=== PATIENT | male | born 2000 | race Caucasian/White ===

== ENCOUNTER 2020-09-10 18:47 | Emergency (ER) | payer BC ==
[~2020-09-10] VITALS: Ht 175.3 cm; Wt 75.6 kg
[2020-09-10 19:02] VITALS: BP 145/92
[2020-09-10] MEDS: MORPHINE SULFATE 4 MG/ML DISP.SYRIN. IM ONE (19:19)
--- NOTE | 2020-09-10 19:20 | PHYS DOC ---
Past History Past Medical History: No Pertinent History Past Surgical History: No Surgical History Alcohol Use: Occasionally Adult General Chief Complaint Chief Complaint: ABDOMINAL PAIN HPI HPI Patient is a 20-year-old male who presents with pain at and around his umbilicus, 5 out of 10, dull and achy in nature that started 4 days ago. States that on Tuesday he went to the gym and exercise and later that evening noticed this discomfort around his bellybutton. States it has been there, with intermittent pain over the last 4 days. States he went to an urgent care today and was sent to the emergency department. Denies any fevers, chest pain, shortness of breath, other abdominal pain, nausea, vomiting, dysuria, hematuria, diarrhea or blood in the stool. States he is eating and drinking normally. States he is making urine and stool normally for him. Review of Systems Review of Systems Review of systems otherwise unremarkable except noted in HPI Allergies Allergies Allergies Coded Allergies Type Severity Reaction Last Updated Verified No Known Drug Allergies 09/10/20 No Physical Exam Physical Exam Constitutional: Well developed, well nourished, no acute distress, non-toxic appearance. [] HENT: Normocephalic, atraumatic, Eyes: conjunctiva normal, no discharge. [] Cardiovascular:Heart rate regular rhythm, no murmur [] Lungs & Thorax: Bilateral breath sounds clear to auscultation [] Abdomen: Bowel sounds normal, soft, and approximately 1 cm, circular, soft, mobile mildly tender mass just to the right of patient's umbilicus suspicious for hernia. Skin: Warm, dry, no erythema, no rash. [] Back: No tenderness, no CVA tenderness. [] Neurologic: Alert and oriented X 3, no focal deficits noted. [] Psychologic: Affect normal, judgement normal, mood normal. [] Current Patient Data Vital Signs Vital Signs Date Time Temp Pulse Resp B/P (MAP) Pulse Ox O2 Delivery O2 Flow Rate FiO2 09/10/20 19:02 98.1 56 16 145/92 (109) 98 Room Air EKG EKG [] Radiology/Procedures Radiology/Procedures [] Heart Score C/O Chest Pain: No Risk Factors: Risk Factors: DM, Current or recent (<one month) smoker, HTN, HLP, family history of CAD, obesity. Risk Scores: Risk Factors: DM, Current or recent (<one month) smoker, HTN, HLP, family hist ory of CAD, obesity. Course & Med Decision Making Course & Med Decision Making Patient is a 20-year-old male who presents with abdominal pain Vital signs not concerning. Physical exam noted above. Patient placed in Trendelenburg, given morphine and small umbilical hernia reduced. Observed in the emergency department after reduction with no further herniation. Discussed hernias with patient and given education. Vies none management at home with hernia belt, diet and pain management. Advised to call primary care physician in the morning to update on ED visit and discuss need for outpatient surgical repair. Gave strict return precautions to the ED. Patient grateful, verbalized understanding and agreed with plan of discharge. [] Dragon Disclaimer Dragon Disclaimer This electronic medical record was generated, in whole or in part, using a voice recognition dictation system. Departure Departure: Impression: Primary Impression: Umbilical hernia Disposition: HOME / SELF CARE / HOMELESS Condition: GOOD Referrals: JOSEFA MARTINEZ MD (PCP) Patient Instructions: Hernia, Hernia, Surgical Repair Additional Instructions: Please read all of the attached information very carefully. As discussed please try to use a hernia belt and avoid any heavy lifting, exercise or activities that will increase the pressure in your abdomen. You can use Tylenol, and ibuprofen at home as needed. It might not be a bad idea to try a stool softener to avoid straining when having a bowel movement. Please call your primary care physician first thing in the morning to update on ED visit and discuss need for outpatient surgical repair. Please come back to the ED immediately with new or concerning symptoms as discussed. NIEVES HERNANDEZ MD September 10, 2020 19:20
== END 2020-09-10 19:34 | disposition home or self-care (01) ==
LOC: ER 18:47
DX: K42.9 Umbilical hernia without obstruction or gangrene (principal)
CPT/HCPCS: 96372; 99283; J2270